=== PATIENT | male | born 1980 | race Caucasian/White ===

== ENCOUNTER 2018-12-13 08:26 | Day surgery (SDC) | payer OTHER ==
[~2018-12-13] VITALS: Ht 175.3 cm; Wt 79.0 kg
[~2018-12-13 08:26] MED LIST: SODIUM CHLORIDE 0.9% 1,000 ML IV ONE
[2018-12-13] MEDS ORDERED: PROPOFOL 1% 20 ML VIAL IVP ONE (08:27)
[2018-12-13] MEDS ORDERED: LIDOCAINE/PF 2% 5 ML VIAL IM ONE (08:27)
[2018-12-13] MEDS ORDERED: SODIUM CHLORIDE 0.9% 1,000 ML IV ONE (08:30)
[2018-12-13] MEDS ORDERED: OXYGEN THERAPY IH SCH (20:00)
== END 2018-12-13 12:15 | disposition home or self-care (01) ==
LOC: SURGERY 08:26
PROVIDERS: ATTEND Specialist
DX: K62.5 Hemorrhage of anus and rectum (principal); K64.1 Second degree hemorrhoids; Z82.49 Family history of ischemic heart disease and other diseases of the circulatory system; Z83.71 Family history of colonic polyps; Z79.899 Other long term (current) drug therapy
CPT/HCPCS: 45350; 93005; J2704; J3490; J7030